=== PATIENT | female | born 1990 | race Caucasian/White ===

== ENCOUNTER → 2019-05-23 | Outpatient (CLI) | payer BC ==
[2019-05-23 15:42] LABS: BASOPHILS % (AUTO) 0 % (0-10); EOSINOPHILS % (AUTO) 0 % (0-10); HEMATOCRIT 33 % (35-52); LYMPHOCYTES % (AUTO) 13 % (12-44); MEAN CORPUSCULAR HEMOGLOBIN 31 PG (25-34); MEAN CORPUSCULAR HGB CONC 33 G/DL (32-36); MEAN CORPUSCULAR VOLUME 92 FL (80-99); MEAN PLATELET VOLUME 10.5 FL (7.4-10.4); MONOCYTES % (AUTO) 6 % (0-12); NEUTROPHILS % (AUTO) 81 % (42-75); PLATELET COUNT 218 10^3/uL (130-400); WHITE BLOOD COUNT 8.3 10^3/uL (4.3-11.0)
[2019-05-23 15:43] LABS: LYMPHOCYTES # (AUTO) 1.1 X 10^3 (1.0-4.0); MONOCYTES # (AUTO) 0.5 X 10^3 (0.0-1.0); NEUTROPHILS # (AUTO) 6.6 X 10^3 (1.8-7.8)
== END ==
LOC: LAB FS 13:37
PROVIDERS: ATTEND Family Medicine
DX: O99.280 Endocrine, nutritional and metabolic diseases complicating pregnancy, unspecified trimester (principal); E03.9 Hypothyroidism, unspecified
CPT/HCPCS: 36415; 82950; 84443; 85025; 86780

== ENCOUNTER → 2019-06-13 | Outpatient (CLI) | payer BC ==
[2019-06-13 17:43] LABS: BACTERIA,URINE TRACE /HPF; BILIRUBIN,URINE NEGATIVE (NEGATIVE); CLARITY,URINE CLEAR; COLOR,URINE YELLOW; GLUCOSE, URINE (UA) NEGATIVE (NEGATIVE); KETONES,URINE NEGATIVE (NEGATIVE); LEUKOCYTE ESTERASE ,URINE TRACE (NEGATIVE); NITRITE,URINE NEGATIVE (NEGATIVE); PH,URINE 6.5 (5-9); PROTEIN,URINE NEGATIVE (NEGATIVE); WBC,URINE 0-2 /HPF
== END ==
LOC: LAB FS 17:03
PROVIDERS: ATTEND Family Medicine
DX: R39.15 Urgency of urination (principal)
CPT/HCPCS: 81000

== ENCOUNTER → 2019-07-14 | Outpatient (CLI) | payer BC | LOC: LAB FS 09:59 | PROVIDERS: ATTEND Family Medicine | DX: E03.9 Hypothyroidism, unspecified (principal) | CPT/HCPCS: 36415; 84443 ==

== ENCOUNTER → 2019-07-18 | Outpatient (CLI) | payer BC ==
[~2019-07-18] MED LIST: DOCU-143 PO; IBUP-1780 PO; OXYC1TAB12 PO
== END ==
LOC: LAB FS 15:01
PROVIDERS: ATTEND Family Medicine
DX: Z34.00 Encounter for supervision of normal first pregnancy, unspecified trimester (principal)
CPT/HCPCS: 87081

== ENCOUNTER 2019-07-20 07:30 | Inpatient (IN) | payer BC ==
[2019-07-20] VITALS (21 sets, daily range): BP systolic 95–141; BP diastolic 59–93
[~2019-07-20] VITALS: Ht 160 cm; Wt 67.9 kg
--- NOTE | 2019-07-20 07:38 | NUR ---
ROXANNE RAYMOND presented to unit via w/c from ED, accompanied by ED staff and , with c/o SROM @ 8470 this a.m. Pt. gowned and to bed. Pt oriented to bed controls, call light, TV, heat, and A/C controls. breathing with ctx's.
--- NOTE | 2019-07-20 08:00 | NUR ---
Nitrazine positive. active leaking clear fluid noted from vaginal area. pt laying on side, rolling around in bed. breathing, moaning with ctx's. rates @ 8.5 on pain scale. SVE 5cm, 100%, tight bag of fluid noted. Addendum: 07/20/19 at 0951 by JACK DELUCA RN unable to determine presenting part r/t bag of fluid.
[2019-07-20] MEDS ORDERED: OXYTOCIN PRE-MIX DRIP 500 ML IV ONE (08:04)
[2019-07-20] MEDS ORDERED: LACTATED RINGERS 1,000 ML IV ONE ×3 (08:04→09:05)
[2019-07-20] MEDS ORDERED: D5 LR IV SOLUTION 1,000 ML IV ONE (08:04)
--- NOTE | 2019-07-20 08:04 | NUR ---
was called with admission c/o's, SVE and monitor tracing . admission orders received.
--- NOTE | 2019-07-20 08:19 | NUR ---
#20g IV to Lt. FA x1 attempt by this RN. admission labs collected from site prior to LR bolus infusing via IV pump.
[2019-07-20 08:29] LABS: BASOPHILS % (AUTO) 0 % (0-10); EOSINOPHILS % (AUTO) 0 % (0-10); HEMATOCRIT 37 % (35-52); HEMOGLOBIN 12.1 G/DL (11.5-16.0); LYMPHOCYTES # (AUTO) 1.3 X 10^3 (1.0-4.0); LYMPHOCYTES % (AUTO) 15 % (12-44); MEAN CORPUSCULAR HEMOGLOBIN 29 PG (25-34); MEAN CORPUSCULAR HGB CONC 33 G/DL (32-36); MEAN CORPUSCULAR VOLUME 88 FL (80-99); MEAN PLATELET VOLUME 10.7 FL (7.4-10.4); MONOCYTES # (AUTO) 0.6 X 10^3 (0.0-1.0); MONOCYTES % (AUTO) 8 % (0-12); NEUTROPHILS # (AUTO) 6.2 X 10^3 (1.8-7.8); NEUTROPHILS % (AUTO) 77 % (42-75); PLATELET COUNT 212 10^3/uL (130-400); WHITE BLOOD COUNT 8.2 10^3/uL (4.3-11.0)
--- NOTE | 2019-07-20 08:34 | NUR ---
anesthesia notified of pt's request for epidural placement.
[2019-07-20] MEDS ORDERED: fentaNYL 2 mcg/ml BUPIVA 0.125 100 ML ONE (08:36)
[2019-07-20] MEDS ORDERED: BUPIVACAINE 0.25% 30 ML (SENSORCAINE) VIAL ONE (08:37)
[2019-07-20] MEDS ORDERED: LIDOCAINE PF 2% 5 ML (XYLOCAINE) VIAL ONE (08:37)
--- OUTSIDE RECORDS SUMMARY | 2019-07-20 08:37 | XMS REPORT | Continuity of Care Document ---
Author Organization Unknown Address Unknown Phone Unavailable Allergies There is no data. Medications There is no data. Problems Date Dx Coded Attending Type Code Diagnosis Diagnosed By 05/25/2019 MAGUI AGARWAL MD, Ot E03 .9 HYPOTHYROIDISM, UNSPECIFIED 05/25/2019 MAGUI AGARWAL MD Ot O99.280 ENDO, NUTRITIONAL AND METAB DISEASES COM 06/13/2019 MAGUI AGARWAL MD, Ot E03 .9 HYPOTHYROIDISM, UNSPECIFIED 06/13/2019 MAGUI AGARWAL MD, Ot O99.280 ENDO, NUTRITIONAL AND METAB DISEASES COM 06/14/2019 MAGUI AGARWAL MD Ot R39.15 URGENCY OF URINATION 07/02/2019 MAGUI AGARWAL MD Ot R39.15 URGENCY OF URINATION 07/15/2019 MAGUI AGARWAL MD, Ot E03 .9 HYPOTHYROIDISM, UNSPECIFIED Procedures There is no data. Results Test Result Range TSH w/ FREE T4 - 11/04/18 09:25 TSH 1.81 mIU/L NRG T4, FREE 1.3 ng/dL 0.8-1.8 HCG, QUANTITATIVE - 11/04/18 09:25 HCG, TOTAL, QN <2 mIU/mL NRG GC/CHLAMYDIA (SWAB OR URINE)-RAPID - 12/25 00:00 CHLAMYDIA TRACHOMATIS RNA, TMA NOT DETECTED NOT DETECTED NEISSERIA GONORRHOEAE RNA, TMA NOT DETECTED NOT DETECTED COMMENT NRG SUREPATH PAP RFX HPV mRNA E6/E7 - 14:20 CLINICAL INFORMATION: NRG LMP: NRG PREV. PAP: NRG PREV. BX: NRG SOURCE: Cervix NRG STATEMENT OF ADEQUACY: NRG INTERPRETATION/RESULT: NRG DRY WALL PLASTERER: NRG COMMENT NRG HCG, QUANTITATIVE - 12/16/18 15:01 HCG, [place] [address]75 mIU/mL NRG TSH - 12/16/18 15:01 TSH 0.02 mIU/L NRG T4 FREE - 12/22/18 16:49 T4, FREE 1.6 ng/dL 0.8-1.8 T3 FREE - 12/22/18 16:49 T3, FREE 3.5 pg/mL 2.3-4.2 TSH - 03/30/19 11:15 TSH 8.49 mIU/L NRG Complete urinalysis with reflex to cultu re - 06/13/19 17:11 Urine color determination YELLOW NRG Urine clarity determination CLEAR NR G Urine pH measurement by test strip 6.5 5-9 Specific gravity of urine by test strip < 1.016-1.022 Urine protein assay by test strip, semi-quantitative NEGATIVE NEGATIVE Urine glucose detection by automated test strip NE GATIVE NEGATIVE Erythrocytes detection in urine sediment by light micr oscopy NEGATIVE NEGATIVE Urine ketones detection by automated test strip NE GATIVE NEGATIVE Urine nitrite detection by test strip NEGATIVE NEGATIVE Urine total bilirubin detection by test strip NEGA TIVE NEGATIVE Urine urobilinogen measurement by automated test strip (mass/volume) 0.2 mg/dL < = 1.0 Urine leukocyte esterase detection by dipstick TRA CE NEGATIVE Automated urine sediment erythrocyte cou nt by microscopy (number/high power field) NONE NRG Automated urine sediment leukocyte count by microscopy (number/high power field) [HPF] NRG Bacteria detection in urine sediment by light microsco py TRACE NRG Squamous epithelial cells detection in u rine sediment by light microscopy 2-5 NRG Crystals detection in urine sediment by light microsco py NONE NRG Casts detection in urine sediment by light microscopy NONE NRG Mucus detection in urine sediment by light microscopy NEGATIVE NRG Complete urinalysis with reflex to culture NO NRG Streptococcus agalactiae detection by or ganism specific culture - 07/18/19 00:00 Complete blood count (CBC) with automate d white blood cell (WBC) differential - 07/20/19 08:19 Blood leukocytes automated count (number/volume) 8.2 10*3/uL 4.3-11.0 Blood erythrocytes automated count (number/volume) 4.15 10*6/uL 4.35-5.85 Venous blood hemoglobin measurement (mass/volume) 12.1 g/dL 11.5-16.0 Blood hematocrit (volume fraction) 37 % 35-52 Automated erythrocyte mean corpuscular volume 88 [ foz_us] 80-99 Automated erythrocyte mean corpuscular h emoglobin (mass per erythrocyte) 29 pg 25-34 Automated erythrocyte mean corpuscular h emoglobin concentration measurement (mass/volume) 33 g/dL 32-36 Automated erythrocyte distribution width ratio 14. 0 % 10.0- 14.5 Automated blood platelet count (count/volume) 212 10*3/uL 130-400 Automated blood platelet mean volume measurement 10.7 [foz_us] 7.4-10.4 Automated blood neutrophils/100 leukocytes 77 % 42-75 Automated blood lymphocytes/100 leukocytes 15 % 12-44 Blood monocytes/100 leukocytes 8 % 0-12 Automated blood eosinophils/100 leukocytes 0 % 0-10 Automated blood basophils/100 leukocytes 0 % 0-10 Blood neutrophils automated count (number/volume) 6.2 10*3 1.8-7.8 Blood lymphocytes automated count (number/volume) 1.3 10*3 1.0-4.0 Blood monocytes automated count (number/volume) 0. 6 10*3 0.0-1.0 Automated eosinophil count 0.0 10*3/uL 0 .0-0.3 Automated blood basophil count (count/volume) 0.0 10*3/uL 0.0-0.1 Encounters ACCT No. Visit Date/Time Discharge Status Pt. Type Provider Facility Loc./Unit Complaint [id number] 03/30/2019 11:15:00 03/30/2019 23:59: 59 CLS Outpatient ADRIAN ADVIDA Pernell Escobar [facility] [place] [id number] 03/30/2019 11:15:00 Document Registration [id number] 12/22/2018 16:45:00 Document Registration [id number] 12/16/2018 15:00:00 Document Registration [id number] 12/16/2018 14:00:00 Document Registration [id number] 11/04/2018 09:00:00 Document Registration [id number] 07/14/2019 09:59:00 23:59:59 CLS Outpatient MAGUI AGARWAL MD [facility] HYPOTHYROIDISM [id number] 06/13/2019 17:03:00 23:59:59 CLS Outpatient MAGUI AGARWAL MD [facility] URINARY URGENCY [id number] 05/23/2019 13:37:00 020 23:59:59 CLS Outpatient STEFANO MALONE, MAGUI Hernandez [facility] SUPERVISION OF MANUEL ANDERSON [id number] 07/20/2019 08:32:00 Document Registration [id number] 07/18/2019 15:01:[address] Outpatient STEFANO MALONE, MAGUI Hernandez [facility]
[2019-07-20] MEDS ORDERED: fentaNYL INJECTION 100 MCG/2 ML AMP ONE ×2 (08:38→09:58)
--- NOTE | 2019-07-20 08:45 | NUR ---
KENNETH Arellano here for epidural placement. Procedure explained, consent reviewed and signed by anesthesia. Questions answered to patient's satisfaction. Time out taken to verify correct patient/procedure. Patient up to side of bed, assisted into sitting position. Betadine prep done x3 and sterile drape applied. Local done, see anesthesia record. Test dose given, see anesthesia record for drug and dosage. Epidural catheter secured in place. Epidural placement complete. Assisted back into bed, monitors adjusted. Epidural dosed, see anesthesia record. Epidural of Sufenta/Bupvicaine @12cc/hr stated per pump. Patient tolerated procedure well.
[2019-07-20] MEDS ORDERED: ONDANSETRON 4 MG/2 ML (SDV) Z0FRAN IV PRN (09:15)
[2019-07-20] MEDS ORDERED: NALOXONE 0.4 MG/ML 1 ML (NARCAN) VIAL IV PRN (09:15)
[2019-07-20] MEDS ORDERED: EPIDURAL (fentaNYL 2 MCG/ML BUPIVA 0.125%)100 ML BAG EPI PRN (09:15)
[2019-07-20] MEDS: D5 LR IV SOLUTION 1,000 ML IV SCH ×2 (09:20→18:32)
[2019-07-20] MEDS ORDERED: TERBUTALINE INJ 1 MG/ML (BRETHINE) AMP ONE (09:45)
[2019-07-20] MEDS ORDERED: METOCLOPRAMIDE INJ 10 MG/2 ML (REGLAN) ONE (09:46)
[2019-07-20] MEDS ORDERED: CITRIC ACID/SOB CIT (BICITRA) 30 ML UDC ONE (09:46)
[2019-07-20] MEDS ORDERED: FAMOTIDINE 20MG/2ML IV (PEPCID) ONE (09:47)
[2019-07-20] MEDS ORDERED: LACTATED RINGERS 1,000 ML IV PRN (09:55)
[2019-07-20] MEDS ORDERED: OXYTOCIN PRE-MIX DRIP 1,000 ML IV ONE (09:58)
[2019-07-20] MEDS ORDERED: ceFAZolin 2 GM IV Premixed 50 ML ONE (09:58)
[2019-07-20] MEDS ORDERED: metroNIDAZOLE 500MG/100ML IVPB 100 ML ONE (09:58)
[2019-07-20] MEDS ORDERED: METOCLOPRAMIDE INJ 10 MG/2 ML (REGLAN) IV ONE (10:00)
[2019-07-20] MEDS ORDERED: FAMOTIDINE 20MG/2ML IV (PEPCID) IV ONE (10:00)
[2019-07-20] MEDS ORDERED: CITRIC ACID/SOB CIT (BICITRA) 30 ML UDC PO ONE (10:00)
[2019-07-20] MEDS ORDERED: BUPIVACAINE 0.5% 30 ML (SENSORCAINE) VIAL ONE (10:29)
--- NOTE | 2019-07-20 10:44 | NUR ---
Pt brought to PACU on bed via Dr Guillermo. Dr Agosto gave this nurse report on pt. See PACU intervention. This nurse assisted Dr Guillermo with Tap block from 1050 to 1100.
[2019-07-20] MEDS ORDERED: D5 LR IV SOLUTION 1,000 ML IV SCH (11:04)
[2019-07-20] MEDS ORDERED: DOCU-143 PO (11:07)
[2019-07-20] MEDS ORDERED: OXYC1TAB12 PO (11:07)
[2019-07-20] MEDS ORDERED: IBUP-1780 PO (11:07)
--- NOTE | 2019-07-20 11:08 | Discharge Inst-Surgical ---
Discharge Inst-Surgical Depart Medication/Instructions New, Converted or Re-Newed RX: RX on Chart Consults/Follow Up Patient Instructions: as directed Orders & Referrals Follow Up Appt: RTC 1 week for incision check with Dr. Isaac Call to make follow up appt. for patient in [address] Powell. Wound Care: Remove mona, apply benzoin and steri strips. Activity Per routine post instructions. Please call in RX to patient pharmacy. Diet as tolerated Patient may shower or tub bathe as desired. Continue home meds Activity Activity as Tolerated: No Diet Discharge Diet: No Restrictions BERNARDA ISAAC MD July 20, 2019 11:08
[2019-07-20] MEDS: OXYTOCIN PRE-MIX DRIP 500 ML IV SCH ×2 (11:10→15:30)
[2019-07-20] MEDS ORDERED: ONDANSETRON 4 MG/2 ML (SDV) Z0FRAN IVP PRN (11:15)
[2019-07-20] MEDS ORDERED: TETANUS,DIPTH,PERTUSS P/F (BOOSTRIX) 0.5 ML VIAL IM ONE (11:15)
[2019-07-20] MEDS ORDERED: MEASLES,MUMPS,RUBELLA 1 EA INJ SC ONE (11:15)
[2019-07-20] MEDS: KETOROLAC 30 MG/ML VIAL IVP SCH ×3 (12:35→23:53)
--- NOTE | 2019-07-20 13:30 | NUR ---
report given to David Stephen RN
--- NOTE | 2019-07-20 13:55 | NUR ---
underwear on. Pt assisted to wheelchair and to nsy to see infant. s.o. present.
[2019-07-20] MEDS: CATHETER FLUSH 10 ML SYR IV SCH ×2 (14:27→22:58)
--- NOTE | 2019-07-20 15:05 | NUR ---
fresh ice water and food tray to [facility] for pt.
[2019-07-20] MEDS: oxyCODONE/APAP 10/325MG (PERCOCET 10) TABLET PO PRN ×3 (15:14→23:53)
--- NOTE | 2019-07-20 15:30 | OPERATIVE REPORT ---
DATE OF SERVICE: 07/20/2019 PREOPERATIVE DIAGNOSES: A 36 and 2/7 weeks' gestation in advanced labor with premature rupture of membranes and breech presentation. POSTOPERATIVE DIAGNOSES: A 36 and 2/7 weeks' gestation in advanced labor with premature rupture of membranes and breech presentation. OPERATIVE PROCEDURE: Primary low transverse delivery of a viable female with Apgars of 8 and 8 at 1 and 5 minutes respectively, weight of 5 pounds 7 ounces. time of 10:21 and a cord blood pH of 7.21. AUTO TECHNICIAN MECHANIC FOR DELIVERY: Dr. Rust. OPERATIVE DESCRIPTION: With the patient in the supine position under satisfactory spinal analgesia, the patient was prepped and draped in the usual fashion for abdominal surgery. Urrutia catheter was placed in the urinary bladder, left to dependent drainage. A Pfannenstiel incision was made through the skin with scalpel, the patient's abdomen entered in the usual manner. Bladder retractor placed in position, clean scalpel used to make a 4 cm hysterotomy incision transversely across the lower uterine segment that was extended by blunt dissection as well. A vigorous viable female infant was delivered via the uterine incision. had Apgars and stats as noted above. The infant was bulb suctioned on delivery. The umbilical cord was doubly clamped and cut and the passed to the pilot captain in attendance for delivery. Cord bloods were obtained. The placenta delivered spontaneously [place]. It was normal with a 3-vessel cord. The uterus was exteriorized, the interior wiped clean with a wet laparotomy sponge. Uterine incision then closed with running locked suture of 2-0 Vicryl. Hemostasis was complete. The uterus was returned to abdominal cavity. All blood clot and debris was removed from the abdominal cavity. With sponge, needle counts correct and hemostasis assured, the anterior parietal peritoneum was closed with running suture of 2-0 Vicryl. Rectus muscles were closed with that suture as well. The rectus fascia was closed with 2-0 Vicryl, subcutaneous tissue was closed with 2-0 Vicryl and the skin was stapled. Sponge and needle counts were correct on completion of the procedure. Estimated blood loss was around 400 mL. The patient tolerated the procedure well and was transferred to the recovery room in stable condition. The infant was taken stable to the full term nursery under the care of the pilot captain. Job ID: [id number] DocumentID: [id number] Dictated Date: 07/20/2019 13:03:11 Compliance Clerk Date: 07/20/2019 15:28:35 Dictated By: BERNARDA QUIÑONEZ MD
--- NOTE | 2019-07-20 15:45 | NUR ---
Pt back to room 313. To bathroom. ambulates well. void, pericare, pad changed, gown changed. Ambulates back to wheelchair and to nsy at warmer side to be with .
[2019-07-20] MEDS: DOCUSATE SODIUM 100 MG (COLACE) CAP PO SCH (19:51)
[2019-07-20] MEDS ORDERED: DOCUSATE SODIUM 100 MG (COLACE) CAP PO SCH (21:00)
[2019-07-21 04:35] VITALS: BP 129/85
[2019-07-21] MEDS: CATHETER FLUSH 10 ML SYR IV SCH ×2 (05:28→14:09)
[2019-07-21] MEDS: KETOROLAC 30 MG/ML VIAL IVP SCH ×3 (05:28→19:43)
--- NOTE | 2019-07-21 07:52 | Progress Note ---
Standard Progress Note Progress Notes/Assess & Plan Date Seen by a Provider: July 21, 2019 Time Seen by a Provider: 07:50 Progress/Assessment & Plan This patient is without complaint. She is ambulating, voiding, tolerating oral intake well has good pain control. Vital Signs Date Time Temp Pulse Resp B/P (MAP) Pulse Ox O2 Delivery O2 Flow Rate FiO2 07/21/19 04:35 37.2 91 18 129/85 (100) 99 Room Air 07/20/19 23:53 37.5 79 18 132/89 (103) 100 Room Air 07/20/19 21:50 36.8 79 18 119/78 (92) 97 Room Air 07/20/19 17:30 37.3 88 18 115/83 (94) 98 Room Air 07/20/19 13:00 37.2 86 18 120/71 (87) 100 Room Air 07/20/19 12:37 37.2 86 16 112/67 (82) 100 Room Air 07/20/19 11:44 Room Air 07/20/19 11:44 36.8 16 101/59 (73) 100 Room Air 07/20/19 11:30 Room Air 07/20/19 11:30 36.4 16 105/70 (82) 100 Room Air 07/20/19 11:15 36.4 16 99/62 (74) 100 Room Air 07/20/19 11:15 Room Air 07/20/19 11:00 Room Air 07/20/19 11:00 36.8 16 95/60 (72) 99 Room Air 07/20/19 10:44 Room Air 07/20/19 10:44 36.8 16 101/59 (73) 100 Room Air 07/20/19 10:05 86 18 100 Room Air 07/20/19 10:00 73 18 134/85 (101) 100 Room Air 07/20/19 09:45 70 18 137/93 (108) 100 Room Air 07/20/19 09:35 37.0 69 18 100 Room Air 07/20/19 09:30 68 100 Room Air 07/20/19 09:20 76 18 126/75 (92) 100 Room Air 07/20/19 09:15 71 18 115/73 (87) 100 Room Air 07/20/19 09:10 69 18 116/74 (88) 98 Room Air 07/20/19 09:05 69 18 124/82 (96) 100 Room Air 07/20/19 09:00 77 18 129/78 (95) 100 Room Air 07/20/19 08:55 77 18 128/85 (99) 99 Room Air 07/20/19 08:50 85 18 141/75 (97) Room Air 07/20/19 08:00 36.6 81 18 119/84 (96) Room Air I & O 07/21/19 07:00 Intake Total 4700 ml Output Total 5650 ml Balance -950 ml Vital signs are stable. Patient is afebrile. Fundus is firm below the umbilicus and nontender. Surgical incision is clean dry and intact. Extremities show no clubbing cyanosis. There is no Homans sign. Assessment and plan postoperative day number 1 status post primary delivery at 36 weeks gestation due to breech presentation. Patient is doing w ell and will have routine convalescence care BERNARDA QUIÑONEZ MD July 21, 2019 07:51
[2019-07-21 10:57] VITALS: BP 111/80
[2019-07-21] MEDS: DOCUSATE SODIUM 100 MG (COLACE) CAP PO SCH (10:59)
[2019-07-21] MEDS: IBUPROFEN 800 MG (MOTRIN) TAB PO SCH ×2 (12:29→18:19)
[2019-07-21] MEDS: D5 LR IV SOLUTION 1,000 ML IV SCH (14:09)
--- NOTE | 2019-07-21 14:12 | Anesthesia-General Post-Op ---
General Patient Condition Mental Status/LOC: Same as Preop Cardiovascular: Satisfactory Nausea/Vomiting: Absent Respiratory: Satisfactory Pain: Controlled Complications: Absent Post Op Complications Complications None Follow Up Care/Instructions Patient Instructions None needed. Anesthesia/Patient Condition Patient Condition Patient is doing well, no complaints, stable vital signs, no apparent adverse anesthesia problems. No complications reported per nursing. ROWDY SAVAGE CRNA July 21, 2019 14:12
--- NOTE | 2019-07-21 15:31 | NUR ---
CM/SS: Received a notification that pt was unable to afford to purchase diabetic supplies. Summary: Follow up with JOSE CRUZ Lomas on floor. She indicates that they have not been monitoring pt's blood sugars and that pt is not diabetic. She is shown the notification. The notification would of been printed in error. No identified need for assistance with diabetic supplies.
--- NOTE | 2019-07-21 15:40 | NUR ---
Report from Sofia Tyson RN. 1625 Pt in nursery at baby's bedside - feels heart racing and skipping beats. Generally does not feel well. LCTA, heart rate regular. Bowel sounds active but no flatus passed or had BM. 1+ edema of feet and lower extremities. Pt admits to not eating or sleeping. Has been in nursery for several hours. 1700 Pt ambulated to room. 1830 Awakened pt for Motrin. States she feels much better with a little nap.
[2019-07-21 16:19] VITALS: BP 113/78
[2019-07-21] MEDS: oxyCODONE/APAP 10/325MG (PERCOCET 10) TABLET PO PRN (16:22)
[2019-07-22 00:01] VITALS: BP 112/77
[2019-07-22] MEDS: oxyCODONE/APAP 10/325MG (PERCOCET 10) TABLET PO PRN ×2 (00:01→18:30)
[2019-07-22] MEDS: DOCUSATE SODIUM 100 MG (COLACE) CAP PO SCH ×3 (00:01→20:07)
[2019-07-22] MEDS: IBUPROFEN 800 MG (MOTRIN) TAB PO SCH ×3 (00:01→18:30)
[2019-07-22 06:15] VITALS: BP 119/90
--- NOTE | 2019-07-22 08:00 | NUR ---
here to see pt.
--- NOTE | 2019-07-22 08:00 | Progress Note ---
Standard Progress Note Progress Notes/Assess & Plan Date Seen by a Provider: July 22, 2019 Time Seen by a Provider: 07:58 Progress/Assessment & Plan This patient is without complaint. She is ambulating, voiding, tolerating oral intake well has good pain control. Vital Signs Date Time Temp Pulse Resp B/P (MAP) Pulse Ox O2 Delivery O2 Flow Rate FiO2 07/21/19 04:35 37.2 91 18 129/85 (100) 99 Room Air 07/20/19 23:53 37.5 79 18 132/89 (103) 100 Room Air 07/20/19 21:50 36.8 79 18 119/78 (92) 97 Room Air 07/20/19 17:30 37.3 88 18 115/83 (94) 98 Room Air 07/20/19 13:00 37.2 86 18 120/71 (87) 100 Room Air 07/20/19 12:37 37.2 86 16 112/67 (82) 100 Room Air 07/20/19 11:44 Room Air 07/20/19 11:44 36.8 16 101/59 (73) 100 Room Air 07/20/19 11:30 Room Air 07/20/19 11:30 36.4 16 105/70 (82) 100 Room Air 07/20/19 11:15 36.4 16 99/62 (74) 100 Room Air 07/20/19 11:15 Room Air 07/20/19 11:00 Room Air 07/20/19 11:00 36.8 16 95/60 (72) 99 Room Air 07/20/19 10:44 Room Air 07/20/19 10:44 36.8 16 101/59 (73) 100 Room Air 07/20/19 10:05 86 18 100 Room Air 07/20/19 10:00 73 18 134/85 (101) 100 Room Air 07/20/19 09:45 70 18 137/93 (108) 100 Room Air 07/20/19 09:35 37.0 69 18 100 Room Air 07/20/19 09:30 68 100 Room Air 07/20/19 09:20 76 18 126/75 (92) 100 Room Air 07/20/19 09:15 71 18 115/73 (87) 100 Room Air 07/20/19 09:10 69 18 116/74 (88) 98 Room Air 07/20/19 09:05 69 18 124/82 (96) 100 Room Air 07/20/19 09:00 77 18 129/78 (95) 100 Room Air 07/20/19 08:55 77 18 128/85 (99) 99 Room Air 07/20/19 08:50 85 18 141/75 (97) Room Air 07/20/19 08:00 36.6 81 18 119/84 (96) Room Air I & O 07/21/19 07:00 Intake Total 4700 ml Output Total 5650 ml Balance -950 ml Vital signs are stable. Patient is afebrile. Fundus is firm below the umbilicus and nontender. Surgical incision is clean dry and intact. Extremities show no clubbing cyanosis. There is no Homans sign. Assessment and plan postoperative day number 1 status post primary delivery at 36 weeks gestation due to breech presentation. Patient is doing w ell and will have routine convalescence care July 22, 2019 Patient is without complaint. She is ambulating, voiding, tolerating oral intake well has good pain control. Vital Signs Date Time Temp Pulse Resp B/P (MAP) Pulse Ox O2 Delivery O2 Flow Rate FiO2 07/22/19 06:15 36.0 94 18 119/90 (100) 98 Room Air 07/22/19 00:01 36.7 98 18 112/77 (89) 99 Room Air 07/21/19 16:19 36.9 98 16 113/78 (90) 97 Room Air 07/21/19 10:57 36.9 97 16 111/80 (90) 96 Room Air I & O 07/22/19 07:00 Intake Total 1000 ml Balance 1000 ml Vital signs are stable. Patient is afebrile. The abdomen is benign. Extremities show no clubbing or cyanosis. There is no Homans sign. Assessment and plan postoperative day number 2 status post primary delivery at 36 weeks gestation. Plan is for routine convalescence care with discharge home pending Final Diagnosis 36 week primary delivery BERNARDA QUIÑONEZ MD July 22, 2019 07:59
--- NOTE | 2019-07-22 10:00 | NUR ---
initial assessment completed, see interventions for further. remain in nursery for bonding with .
[2019-07-22 13:13] VITALS: BP 126/90
--- NOTE | 2019-07-22 15:45 | History & Physical-OB ---
OB - Chief Complaint & HPI Date/Time Date of Admission: Date of Admission: July 20, 2019 at 08:06 Date seen by a Provider: July 20, 2019 Time Seen by a Provider: 11:00 Chief Complaint/History OB-Reason for Admission/Chief: Labor Hx : 1 Hx Para: 1 Expected Date of Delivery: Aug 15, 2019 Gestational Age in Weeks: 36 Gestational Age in Days: 2 Indication for : malpresentation Admission Nurse Assessment Rev: Yes Allergies and Home Medications Allergies Coded Allergies: amoxicillin (Verified Allergy, Unknown, 07/20/19) Home Medications Docusate Sodium 100 Mg Capsule, 100 MG PO BID Prescribed by: BERNARDA DODD on 07/20/19 110 Ibuprofen 800 Mg Tablet, 800 MG PO Q6H PRN for PAIN Prescribed by: BERNARDA DODD on 07/20/19 1107 Oxycodone HCl/Acetaminophen 1 Each Tablet, 1 TAB PO Q4H PRN for PAIN-MODERATE Prescribed by: BERNARDA DODD on 07/20/19 1107 Patient Home Medication List Home Medication List Reviewed: Yes OB - History Hx of Present Care: Yes Ultrasounds: Normal mid trimester US Obstetrical Complications: None Medical Complications: Other (acquired hypothyroidism) Delivery History Adverse Rxn to Tranfusion: No Patient Past Medical History hypothyroidism Social History/Family History HIV/AIDS: No Recent Infectious Disease Expo: No Sexually Transmitted Disease: No Alcohol Use: Denies Use Recreational Drug Use: No Immunizations Hepatitis A: No Hepatitis B: No OB - Admission Exam Physical Exam Vitals: Vital Signs 07/22/19 13:13 Temp 37.1 Pulse 92 Resp 18 B/P (MAP) 126/90 (102) Pulse Ox 100 O2 Delivery Room Air HEENT: NCAT Abdomen: Gravid Extremities: Normal Reflexes: Normal OB - Assessment/Plan/Diagnosis Assessment Assessment: labor Admission Dx labor at 36 2/7 wga, breech presentation Admission Status: Inpatient Order (span 2 midnights) Reason for Inpatient Admission: labor at 36 2/7 wga, breech presentation. Plan Other Plan Breech presentation. Consulted Dr. Isaac for . In process by the time of my arrival. MAGUI AGARWAL MD July 22, 2019 15:44
[2019-07-22 18:34] VITALS: BP 131/93
--- NOTE | 2019-07-22 19:25 | NUR ---
report given to next shift.
[2019-07-22 20:05] VITALS: BP 120/74
[2019-07-23 00:20] VITALS: BP 117/80
[2019-07-23] MEDS: oxyCODONE/APAP 10/325MG (PERCOCET 10) TABLET PO PRN ×2 (00:23→12:45)
[2019-07-23] MEDS: IBUPROFEN 800 MG (MOTRIN) TAB PO SCH ×3 (00:23→12:26)
[2019-07-23 06:45] VITALS: BP 128/87
[2019-07-23 07:20] VITALS: BP 120/80
[2019-07-23] MEDS: DOCUSATE SODIUM 100 MG (COLACE) CAP PO SCH (07:39)
--- NOTE | 2019-07-23 08:21 | Progress Note ---
Standard Progress Note Progress Notes/Assess & Plan Date Seen by a Provider: July 23, 2019 Time Seen by a Provider: 08:19 Progress/Assessment & Plan This patient is without complaint. She is ambulating, voiding, tolerating oral intake well has good pain control. Vital Signs Date Time Temp Pulse Resp B/P (MAP) Pulse Ox O2 Delivery O2 Flow Rate FiO2 07/21/19 04:35 37.2 91 18 129/85 (100) 99 Room Air 07/20/19 23:53 37.5 79 18 132/89 (103) 100 Room Air 07/20/19 21:50 36.8 79 18 119/78 (92) 97 Room Air 07/20/19 17:30 37.3 88 18 115/83 (94) 98 Room Air 07/20/19 13:00 37.2 86 18 120/71 (87) 100 Room Air 07/20/19 12:37 37.2 86 16 112/67 (82) 100 Room Air 07/20/19 11:44 Room Air 07/20/19 11:44 36.8 16 101/59 (73) 100 Room Air 07/20/19 11:30 Room Air 07/20/19 11:30 36.4 16 105/70 (82) 100 Room Air 07/20/19 11:15 36.4 16 99/62 (74) 100 Room Air 07/20/19 11:15 Room Air 07/20/19 11:00 Room Air 07/20/19 11:00 36.8 16 95/60 (72) 99 Room Air 07/20/19 10:44 Room Air 07/20/19 10:44 36.8 16 101/59 (73) 100 Room Air 07/20/19 10:05 86 18 100 Room Air 07/20/19 10:00 73 18 134/85 (101) 100 Room Air 07/20/19 09:45 70 18 137/93 (108) 100 Room Air 07/20/19 09:35 37.0 69 18 100 Room Air 07/20/19 09:30 68 100 Room Air 07/20/19 09:20 76 18 126/75 (92) 100 Room Air 07/20/19 09:15 71 18 115/73 (87) 100 Room Air 07/20/19 09:10 69 18 116/74 (88) 98 Room Air 07/20/19 09:05 69 18 124/82 (96) 100 Room Air 07/20/19 09:00 77 18 129/78 (95) 100 Room Air 07/20/19 08:55 77 18 128/85 (99) 99 Room Air 07/20/19 08:50 85 18 141/75 (97) Room Air 07/20/19 08:00 36.6 81 18 119/84 (96) Room Air I & O 07/21/19 07:00 Intake Total 4700 ml Output Total 5650 ml Balance -950 ml Vital signs are stable. Patient is afebrile. Fundus is firm below the umbilicus and nontender. Surgical incision is clean dry and intact. Extremities show no clubbing cyanosis. There is no Homans sign. Assessment and plan postoperative day number 1 status post primary delivery at 36 weeks gestation due to breech presentation. Patient is doing w ell and will have routine convalescence care July 22, 2019 Patient is without complaint. She is ambulating, voiding, tolerating oral intake well has good pain control. Vital Signs Date Time Temp Pulse Resp B/P (MAP) Pulse Ox O2 Delivery O2 Flow Rate FiO2 07/22/19 06:15 36.0 94 18 119/90 (100) 98 Room Air 07/22/19 00:01 36.7 98 18 112/77 (89) 99 Room Air 07/21/19 16:19 36.9 98 16 113/78 (90) 97 Room Air 07/21/19 10:57 36.9 97 16 111/80 (90) 96 Room Air I & O 07/22/19 07:00 Intake Total 1000 ml Balance 1000 ml Vital signs are stable. Patient is afebrile. The abdomen is benign. Extremities show no clubbing or cyanosis. There is no Homans sign. Assessment and plan postoperative day number 2 status post primary delivery at 36 weeks gestation. Plan is for routine convalescence care with discharge home pending July 23, 2019 This patient is without complaint. She is ambulating, voiding, tolerating oral intake well has good pain control. Vital Signs Date Time Temp Pulse Resp B/P (MAP) Pulse Ox O2 Delivery O2 Flow Rate FiO2 07/23/19 06:45 36.2 78 16 128/87 (101) 98 Room Air 07/23/19 00:20 36.4 82 16 117/80 (92) 98 Room Air 07/22/19 20:05 36.2 83 18 120/74 (89) 97 Room Air 07/22/19 18:34 36.2 85 18 131/93 (106) 99 Room Air 07/22/19 13:13 37.1 92 18 126/90 (102) 100 Room Air Vital signs are stable. Patient is afebrile. The abdomen is benign. The surgical incision is clean dry and intact. Extremities show no clubbing cyanosis. There is no Homans sign. Assessment and plan postoperative day number 3 status post primary delivery doing well. Plan is for routine convalescence care Final Diagnosis 36 week primary delivery BERNARDA QUIÑONEZ MD July 23, 2019 08:21
--- NOTE | 2019-07-23 11:23 | NUR ---
[place] removed, benzoin and steri strips applied. Edges of incision approximated.
--- NOTE | 2019-07-23 12:39 | NUR ---
Home instructions given with pt verbalizing understanding. 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 Explained parents would get meals free but would not longer receive pain medications or nursing care for mom.
== END 2019-07-23 13:10 | disposition home or self-care (01) | DRG 786 ==
LOC: LDRP 07:30 → WSo 07:30 → LDRP 08:06
PROVIDERS: ADMIT Family Medicine; ATTEND Family Medicine
PROC: 10D00Z1 Extraction of Products of Conception, Low, Open Approach (ICD-10-PCS; principal; 2019-07-20 10:05)
DX: O64.1XX0 Obstructed labor due to breech presentation, not applicable or unspecified (principal); O60.14X0 Preterm labor third trimester with preterm delivery third trimester, not applicable or unspecified; O42.013 Preterm premature rupture of membranes, onset of labor within 24 hours of rupture, third trimester; O99.284 Endocrine, nutritional and metabolic diseases complicating childbirth; E03.9 Hypothyroidism, unspecified; Z3A.36 36 weeks gestation of pregnancy; Z37.0 Single live birth
CPT/HCPCS: 36415; 85025; 86850; 86900; 86901; 88307; 99212

== ENCOUNTER 2019-07-31 18:19 | Emergency (ER) | payer BC ==
[~2019-07-31] VITALS: Ht 160 cm; Wt 63.6 kg
--- OUTSIDE RECORDS SUMMARY | 2019-07-31 18:24 | XMS REPORT | Continuity of Care Document ---
Author Organization Unknown Address Unknown Phone Unavailable Allergies Active Description Code Type Severity Reaction Onset Reported/Identified Relationship to Patient Clinical Status Yes amoxicillin [id number] Drug Aller gy Unknown N/A 07/20/2019 Medications There is no data. Problems Date [...] AGARWAL MD, Ot E03 .9 HYPOTHYROIDISM, UNSPECIFIED 07/20/2019 MAGUI AGARWAL MD Ot Z34.00 ENCNTR FOR SUPRVSN OF NORMAL FIRST PREGN 07/23/2019 MAGUI AGARWAL MD, Ot E03 .9 HYPOTHYROIDISM, UNSPECIFIED 07/23/2019 MAGUI AGARWAL MD Ot O42.013 PRETRM OTIS ROM, ONSET LABOR W/N 24 HOUR 07/23/2019 MAGUI AGARWAL MD, Ot O60.14X0 LABOR THIRD TRI W DELIVE 07/23/2019 MAGUI AGARWAL MD, Ot O64.1XX0 OBSTRUCTED LABOR DUE TO BREECH PRESENTAT 07/23/2019 MAGUI AGARWAL MD Ot O99.284 ENDOCRINE, NUTRITIONAL AND METABOLIC DIS 07/23/2019 MAGUI AGARWAL MD, Ot Z37 .0 SINGLE LIVE 07/23/2019 MAGUI AGARWAL MD, Ot Z3A.36 36 WEEKS GESTATION OF Procedures Code Description Performed By Per formed On [id number] EX TRACTION OF PRODUCTS OF CONCEPTION, 07/20/2019 Results Test Result Range TSH w/ FREE [...] NRG STATEMENT OF ADEQUACY: NRG INTERPRETATION/RESULT: NRG SPORTS MARKETER: NRG COMMENT NRG HCG, QUANTITATIVE - 12/16/18 15:01 [place], [place] [address] mIU/mL NRG TSH - 12/16/18 15:01 TSH [...] blood basophil count (count/volume) 0.0 10*3/uL 0.0-0.1 Blood type T Indirect antibody screen pa tamera - 07/20/19 08:19 WRISTBAND NUMBER [id number] NRG ABO+Rh group AP NRG Blood group antibody screen NEGATIVE NR G Encounters ACCT No. Visit Date/Time Discharge Status Pt. Type Provider Facility Loc./Unit Complaint [id number] 03/30/2019 11:15:00 03/30/2019 23:59: 59 CLS Outpatient DAVIDA [facility]AMPBELL [facility] [id number] 03/30/2019 11:15:00 Document Registration [id number] 12/22/2018 16:45:00 Document Registration [id number] 12/16/2018 15:00:00 Document Registration [id number] 12/16/2018 14:00:00 Document Registration [id number] 11/04/2018 09:00:00 Document Registration [id number] 07/20/2019 08:06:00 13:10:00 DIS Inpatient MAGUI AGARWAL MD [facility] LABOR [id number] 07/18/2019 15:01:00 23:59:59 CLS Outpatient MAGUI AGARWAL MD [facility] LAB FS [id number] 07/14/2019 09:59:00 23:59:59 CLS Outpatient MAGUI AGARWAL MD [facility] LAB FS HYPOTHYROIDISM [id number] 06/13/2019 17:03:00 23:59:59 CLS Outpatient MAGUI AGARWAL MD [facility] LAB FS URINARY URGENCY [id number] 05/23/2019 13:37:00 23:59:59 CLS Outpatient MAGUI AGARWAL MD [facility] LAB FS SUPERVISION OF NORMAL P REGNANCY
--- NOTE | 2019-07-31 18:33 | ED GU-Female ---
General Stated Complaint: C SECTION INCISION INFECTED Source: patient Exam Limitations: no limitations History of Present Illness Date Seen by Provider: July 31, 2019 Time Seen by Provider: 18:17 Initial Comments Patient presents ER by private conveyance from home with chief complaint that she has some swelling tenderness and erythema associated with her incision from on the , 12 days ago. She went and saw Dr. Agarwal on Thursday and they examined and did not do anything different. She went back and saw her Thursday and was put on Keflex. She feels like today the swelling started more on the right side incision and has moved over to the left side. She has no opening of the wound or drainage. No nausea sweats or diarrhea. She claims to have measured a 100.8 fever earlier today after taking some ibuprofen. Nursing reports no fever at present. She has modest amount tenderness to touch. She is breast-feeding. Normal show, denies dysuria, dyspareunia, discharge or difficulty breast-feeding. Allergies and Home Medications Allergies Coded Allergies: amoxicillin (Verified Allergy, Unknown, 07/20/19) Home Medications Docusate Sodium 100 Mg Capsule, 100 MG PO BID Prescribed by: BERNARDA DODD on 07/20/19 1107 Ibuprofen 800 Mg Tablet, 800 MG PO Q6H PRN for PAIN Prescribed by: BERNARDA DODD on 07/20/19 1107 Oxycodone HCl/Acetaminophen 1 Each Tablet, 1 TAB PO Q4H PRN for PAIN-MODERATE Prescribed by: BERNARDA DODD on 07/20/19 1107 Patient Home Medication List Home Medication List Reviewed: Yes Review of Systems Review of Systems Constitutional: No chills, No diaphoresis EENTM: No ear discharge, No ear pain Respiratory: No cough, No short of breath Cardiovascular: No chest pain, No edema Gastrointestinal: No abdominal pain, No constipation, No diarrhea, No nausea, No vomiting Genitourinary: denies burning, denies discharge Musculoskeletal: No back pain, No joint pain Skin: see HPI All Other Systemes Reviewed Negative Unless Noted: Yes Past Cacfpxd-Ssiegl-Hleudw Hx Patient Social History Alcohol Use: Denies Use Recreational Drug Use: No Smoking Status: Never a Smoker Recent Foreign Travel: No Contact w/Someone Who Travel: No Recent Hopitalizations: No Immunizations Up To Date PED Vaccines UTD: Yes Seasonal Allergies Seasonal Allergies: No Past Medical History Respiratory: No Currently Using CPAP: No Currently Using BIPAP: No Neurological: No Female Reproductive Disorders: Denies Sexually Transmitted Disease: No HIV/AIDS: No Genitourinary: No Gastrointestinal: No Musculoskeletal: No Endocrine: Yes HEENT: No Cancer: Yes (Thyroid cancer) Thyroid What Type of Treatment Did You: Radiation, Surgical Intervention Psychosocial: No Integumentary: No Blood Disorders: No Adverse Reaction/Blood Tranf: No Family Medical History Asthma G8 BROTHER (3y/o) Physical Exam Vital Signs Vital Signs - First Documented 07/31/19 18:21 Temp 37.0 Pulse 76 Resp 18 B/P (MAP) 105/87 (93) Pulse Ox 98 O2 Delivery Room Air Capillary Refill : Height, Weight, BMI Height: '" Weight: lbs. oz. kg; 26.52 BMI Method: General Appearance: WD/WN, no apparent distress HEENT: PERRL/EOMI, pharynx normal Cardiovascular: normal peripheral pulses, regular rate, rhythm Respiratory: no respiratory distress, no accessory muscle use Gastrointestinal: normal bowel sounds, soft, no organomegaly, tenderness (suprapubic and right lower quadrant around the well-healing scar are mildly tender to palpation) Extremities: normal range of motion, normal capillary refill Neurologic/Psychiatric: alert, oriented x 3 Skin: normal color, warm/dry, other (healing, closed, clean, dry pfannenstiel scar with mild tenderness to palpation, scant erythema and no induration. There is a fluctuant palpable fluid collection just under the scar without discharge.) Progress/Results/Core Measures Suspected Sepsis SIRS Temperature: Pulse: Respiratory Rate: Laboratory Tests 07/31/19 18:30: White Blood Count 10.4 Blood Pressure / Mean: Laboratory Tests 07/31/19 18:30: Platelet Count 519H Results/Orders Lab Results Laboratory Tests Test 07/31/19 18:30 07/31/19 18:40 Range/Units White Blood Count 10.4 4.3-11.0 10^3/uL Red Blood Count 3.59 L 4.35-5.85 10^6/uL Hemoglobin 10.4 L 11.5-16.0 G/DL Hematocrit 32 L 35-52 % Mean Corpuscular Volume 89 80-99 FL Mean Corpuscular Hemoglobin 29 25-34 PG Mean Corpuscular Hemoglobin Concent 33 32-36 G/DL Red Cell Distribution Width 13.9 10.0-14.5 % Platelet Count 519 H 130-400 10^3/uL Mean Platelet Volume 8.9 7.4-10.4 FL Neutrophils (%) (Auto) 80 H 42-75 % Lymphocytes (%) (Auto) 14 12-44 % Monocytes (%) (Auto) 6 0-12 % Eosinophils (%) (Auto) 1 0-10 % Basophils (%) (Auto) 0 0-10 % Neutrophils # (Auto) 8.2 H 1.8-7.8 X 10^3 Lymphocytes # (Auto) 1.5 1.0-4.0 X 10^3 Monocytes # (Auto) 0.6 0.0-1.0 X 10^3 Eosinophils # (Auto) 0.1 0.0-0.3 10^3/uL Basophils # (Auto) 0.0 0.0-0.1 10^3/uL C-Reactive Protein High Sensitivity 6.02 H 0.00-0.50 MG/DL Urine Color YELLOW Urine Clarity CLEAR Urine pH 5.5 5-9 Urine Specific [place] 1.025 H 1.016-1.022 Urine Protein NEGATIVE NEGATIVE Urine Glucose (UA) NEGATIVE NEGATIVE Urine Ketones NEGATIVE NEGATIVE Urine Nitrite NEGATIVE NEGATIVE Urine Bilirubin NEGATIVE NEGATIVE Urine Urobilinogen 0.2 < = 1.0 MG/DL Urine Leukocyte Esterase 1+ H NEGATIVE Urine RBC (Auto) TRACE-I NEGATIVE Urine RBC 5-10 H /HPF Urine WBC 10-25 H /HPF Urine Crystals NONE /LPF Urine Bacteria TRACE /HPF Urine Casts NONE /LPF Urine Mucus LARGE H /LPF Urine Culture Indicated NO My Orders Orders - GARRET SHERWOOD Cbc With Automated Diff (07/31/19 18:27) Hs C Reactive Protein (07/31/19 18:27) Ua Culture If Indicated (07/31/19 18:42) Vital Signs/I&O 07/31/19 18:21 Temp 37.0 Pulse 76 Resp 18 B/P (MAP) 105/87 (93) Pulse Ox 98 O2 Delivery Room Air Capillary Refill : Progress Note : Time: 18:32 Progress Note Suspect seroma versus much less likely abscess. We'll check a CBC and CRP as well as lay ultrasound across the wound. Aseptic vital signs at present with history of objective fever at home. Bedside ultrasound was able to reveal a simple fluid collection just deep to the right half of the surgical wound that does not appear to be loculated or complex. Measures approximately 2.5 x 5 cm at greatest dimension. And review of systems fails to reveal source for fever otherwise. Plan to check a urinalysis regardless. Departure Communication (PCP) Discussed the case with Dr. Agarwal, PCP and she agrees with change in antibiotics for something that has MRSA coverage. Bactrim would be tolerable for breast- feeding and would cover empirically for UTI as well as possible abscess formation. She was not impressed by erythema warmth or presence of abscess when she saw her Thursday, 2 days ago. She agreed that a seroma was more likely. She'll be happy to see the patient later this week if the patient would call on Thursday. Impression Primary Impression: Urinary tract infection Qualified Codes: N30.01 - Acute cystitis with hematuria Additional Impressions: Seroma after procedure Anemia Qualified Codes: D64.9 - Anemia, unspecified Disposition: HOME, SELF-CARE Condition: Stable Departure-Patient Inst. Decision time for Depature: 19:32 Referrals: MAGUI AGARWAL MD (PCP/Family) Primary Care Physician Patient Instructions: Urinary Tract Infection, Adult (DC) Add. Discharge Instructions: Drink plenty of fluids. Stop taking the Keflex tonight. Bactrim one tablet twice a day with food in at least 8 ounces of water. supervisor coke handling a bottle of probiotics and start taking one capsule twice a day for the next couple weeks. Continue taking your multivitamins as tolerated for the next several months per your primary doctor's recommendations. Warm compresses applied over the wound for pain or swelling. Tylenol 1000 mg every 8 hours as needed for pain. If you're still having issues by Thursday then please call Dr. Agarwal for follow- up appointment in the clinic. Sometimes these seroma/fluid collections need to be drained and Dr. Agarwal can help set that up for you if it is indicated. If you're having intractable pain or unable to tolerate eating and drinking then I would encourage you to return to the ER. Scripts Sulfamethoxazole/Trimethoprim (Bactrim Ds Tablet) 1 Each Tablet 1 EACH PO BID for 7 Days, #14 TAB 0 Refills Prov: GARRET SHERWOOD 07/31/19 GARRET SHERWOOD July 31, 2019 18:33
[2019-07-31 18:45] LABS: BASOPHILS % (AUTO) 0 % (0-10); EOSINOPHILS # (AUTO) 0.1 10^3/uL (0.0-0.3); EOSINOPHILS % (AUTO) 1 % (0-10); HEMATOCRIT 32 % (35-52); HEMOGLOBIN 10.4 G/DL (11.5-16.0); LYMPHOCYTES # (AUTO) 1.5 X 10^3 (1.0-4.0); LYMPHOCYTES % (AUTO) 14 % (12-44); MEAN CORPUSCULAR HEMOGLOBIN 29 PG (25-34); MEAN CORPUSCULAR HGB CONC 33 G/DL (32-36); MEAN CORPUSCULAR VOLUME 89 FL (80-99); MEAN PLATELET VOLUME 8.9 FL (7.4-10.4); MONOCYTES # (AUTO) 0.6 X 10^3 (0.0-1.0); MONOCYTES % (AUTO) 6 % (0-12); NEUTROPHILS # (AUTO) 8.2 X 10^3 (1.8-7.8); NEUTROPHILS % (AUTO) 80 % (42-75); PLATELET COUNT 519 10^3/uL (130-400); RED CELL DISTRIBUTION WIDTH 13.9 % (10.0-14.5); WHITE BLOOD COUNT 10.4 10^3/uL (4.3-11.0)
[2019-07-31 19:10] LABS: BILIRUBIN,URINE NEGATIVE (NEGATIVE); CLARITY,URINE CLEAR; COLOR,URINE YELLOW; GLUCOSE, URINE (UA) NEGATIVE (NEGATIVE); KETONES,URINE NEGATIVE (NEGATIVE); LEUKOCYTE ESTERASE ,URINE 1+ (NEGATIVE); NITRITE,URINE NEGATIVE (NEGATIVE); PH,URINE 5.5 (5-9); PROTEIN,URINE NEGATIVE (NEGATIVE)
[2019-07-31 19:19] LABS: BACTERIA,URINE TRACE /HPF
[2019-07-31] MEDS ORDERED: SULF1TAB35 PO (19:39)
[2019-07-31] MEDS ORDERED: TRIM/SULFAMETH 160/800 (SEPTRA DS) TAB PO ONE (19:45)
[2019-07-31 19:47] VITALS: BP 107/76
== END 2019-07-31 19:48 | disposition home or self-care (01) ==
LOC: EDUNIT# 18:19 → ER 18:20
DX: O86.20 Urinary tract infection following delivery, unspecified (principal); O99.89 Other specified diseases and conditions complicating pregnancy, childbirth and the puerperium; N99.842 Postprocedural seroma of a genitourinary system organ or structure following a genitourinary system procedure; O99.03 Anemia complicating the puerperium; D64.9 Anemia, unspecified; Z88.0 Allergy status to penicillin; Z85.850 Personal history of malignant neoplasm of thyroid
CPT/HCPCS: 36415; 81000; 85025; 86141; 99283

== ENCOUNTER → 2019-09-02 | Outpatient (CLI) | payer BC ==
[~2019-09-02] MED LIST changes: +SULF1TAB35 PO
== END ==
LOC: LAB FS 15:09
PROVIDERS: ATTEND Family Medicine
DX: E03.9 Hypothyroidism, unspecified (principal)
CPT/HCPCS: 36415; 84443

== ENCOUNTER → 2020-02-28 | Outpatient (CLI) | payer MEDICAID | LOC: LAB FS 12:46 | PROVIDERS: ATTEND Family Medicine | DX: E03.9 Hypothyroidism, unspecified (principal) | CPT/HCPCS: 36415; 84443 ==

== ENCOUNTER → 2020-12-21 | Outpatient (CLI) | payer OTHER ==
[~2020-12-21] MED LIST changes: -SULF1TAB35 PO; +SULF1TAB38 PO
== END ==
LOC: LAB FS 15:23
PROVIDERS: ATTEND Registered Nurse Emergency
DX: N92.5 Other specified irregular menstruation (principal)
CPT/HCPCS: 36415; 84702

== ENCOUNTER → 2020-12-24 | Outpatient (CLI) | payer OTHER | LOC: LAB FS 08:11 | PROVIDERS: ATTEND Registered Nurse Emergency | DX: N92.5 Other specified irregular menstruation (principal) | CPT/HCPCS: 36415; 84702 ==

== ENCOUNTER → 2021-01-02 | Outpatient (CLI) | payer OTHER | LOC: LAB FS 08:17 | PROVIDERS: ATTEND Family Medicine | DX: Z34.91 Encounter for supervision of normal pregnancy, unspecified, first trimester (principal); Z3A.00 Weeks of gestation of pregnancy not specified | CPT/HCPCS: 36415; 84443 ==

== ENCOUNTER → 2021-01-24 | Outpatient (CLI) | payer BC ==
[2021-01-24 11:21] LABS: HEMATOCRIT 36 % (35-52); MEAN CORPUSCULAR HEMOGLOBIN 31 pg (25-34); MEAN CORPUSCULAR HGB CONC 33 g/dL (32-36); MEAN CORPUSCULAR VOLUME 91 fL (80-99); MEAN PLATELET VOLUME 10.7 fL (9.0-12.2); PLATELET COUNT 224 10^3/uL (130-400); WHITE BLOOD COUNT 4.7 10^3/uL (4.3-11.0)
== END ==
LOC: LAB FS 10:15
PROVIDERS: ATTEND Family Medicine
DX: Z34.91 Encounter for supervision of normal pregnancy, unspecified, first trimester (principal); Z3A.00 Weeks of gestation of pregnancy not specified
CPT/HCPCS: 36415; 85027; 86703; 86762; 86780; 86850; 86900; 86901; 87077; 87088; 87340

== ENCOUNTER → 2021-02-14 | Outpatient (CLI) | payer BC | LOC: LABNPT 14:49 | PROVIDERS: ATTEND Family Medicine | DX: Z33.1 Pregnant state, incidental (principal) | CPT/HCPCS: 87210 ==

== ENCOUNTER 2021-02-15 09:32 | Emergency (ER) | payer BC ==
[~2021-02-15] VITALS: Ht 160 cm; Wt 55.3 kg
[2021-02-15 10:58] LABS: BILIRUBIN,URINE NEGATIVE (NEGATIVE); CLARITY,URINE CLEAR; COLOR,URINE YELLOW; GLUCOSE, URINE (UA) NEGATIVE (NEGATIVE); KETONES,URINE NEGATIVE (NEGATIVE); LEUKOCYTE ESTERASE ,URINE 1+ (NEGATIVE); NITRITE,URINE NEGATIVE (NEGATIVE); PH,URINE 7.5 (5-9); PROTEIN,URINE NEGATIVE (NEGATIVE)
--- NOTE | 2021-02-15 10:59 | ED GU-Female ---
General Chief Complaint: OB < 20 WEEKS Stated Complaint: 12-15 WKS PREG-SPOTTING Nursing Triage Note: PT AMB TO RM 10 WITH COMPLAINT OF BROWN/REDISH VAGINAL DISCHARGE. STATES WENT TO DR ON THURSDAY, HAD NORMAL ULTRASOUND AND PELVIC. STATES URINE RESULTS HAD A MIX UP AND HAVE NOT BEEN REPORTED. STATES SHE IS HAVING BACK PAIN AND PELVIC PAIN. APPROX 12 WEEKS Source: patient Exam Limitations: no limitations (JOSE TEJADA STUDENT) History of Present Illness Date Seen by Provider: Feb 15, 2021 Time Seen by Provider: 10:20 Initial Comments This is an otherwise healthy 30 YO female, A0 who presents to the ED with vaginal spotting with . Pt states she is 12-15 weeks and 3 days ago noticed some brownish red spotting. She saw her PCP Dr. Agarwal in [place] for her symptoms the next day. Ultrasound and pelvic exam were performed at that time. Pt reports ultrasound was normal and pelvic exam showed a small amount of blood. She states she just got a call back from office saying that she likely has bacterial vaginosis based on the results of her wet prep. Denies painful urination, but states she has an unusual sensation in her bladder and is concerned about possible UTI. Also notes some lower back pain that is increased from normal, but denies any abdominal or pelvic pain/cramping. Denies any symptoms like this with her previous , which she delivered by about 1 month early, but was otherwise uncomplicated. Associated Symptoms: No fever/chills (JOSE TEJADA STUDENT) Allergies and Home Medications Allergies Coded Allergies: amoxicillin (Verified Allergy, Unknown, 07/20/19) Patient Home Medication List Home Medication List Reviewed: Yes (TORITO MCKEON MD) Docusate Sodium (Colace) 100 Mg Capsule, 100 MG PO BID Prescribed by: BERNARDA DODD on 07/20/19 1107 Ibuprofen (Ibuprofen) 800 Mg Tablet, 800 MG PO Q6H PRN for PAIN Prescribed by: BERNARDA DODD on 07/20/19 1107 Oxycodone HCl/Acetaminophen (Percocet 10-325 mg Tablet) 1 Each Tablet, 1 TAB PO Q4H PRN for PAIN-MODERATE Prescribed by: BERNARDA DODD on 07/20/19 1107 Sulfamethoxazole/Trimethoprim (Bactrim Ds Tablet) 1 Each Tablet, 1 EACH PO BID Prescribed by: GARRET SHERWOOD on 07/31/191938 Review of Systems Review of Systems Constitutional: No chills, No fever EENTM: No blurred vision, No double vision Respiratory: No cough, No short of breath Cardiovascular: No chest pain, No palpitations Gastrointestinal: No diarrhea, No nausea, No vomiting Genitourinary: see HPI : Yes Expected Date of Delivery: Aug 25, 2021 Musculoskeletal: back pain; No muscle pain Skin: no symptoms reported Psychiatric/Neurological: Denies Headache, Denies Numbness Endocrine: No Symptoms Reported Hematologic/Lymphatic: No Symptoms Reported (JOSE TEJADA STUDENT) All Other Systemes Reviewed Negative Unless Noted: Yes (Negative excepted noted.) (JOSE TEJADA) Past Pfobbpp-Ukgtqo-Ziucob Hx Patient Social History Tobacco Use?: No Use of E-Cig and/or Vaping dev: No Substance use?: No Alcohol Use?: No Pt feels they are or have been: No (JOSE TEJADA) Immunizations Up To Date PED Vaccines UTD: Yes (JOSE TEJADA) Seasonal Allergies Seasonal Allergies: No (JOSE TEJADA) Past Medical History Surgeries: Yes Thyroidectomy Respiratory: No Currently Using CPAP: No Currently Using BIPAP: No Neurological: No Female Reproductive Disorders: Denies Sexually Transmitted Disease: No HIV/AIDS: No Genitourinary: No Gastrointestinal: No Musculoskeletal: No Endocrine: Yes HEENT: No Cancer: Yes (Thyroid cancer) Thyroid What Type of Treatment Did You: Radiation, Surgical Intervention Psychosocial: No Integumentary: No Blood Disorders: No Adverse Reaction/Blood Tranf: No (JOSE TEJADA STUDENT) Family Medical History Asthma G8 BROTHER (3y/o) Physical Exam Vital Signs Vital Signs - First Documented 02/15/21 09:37 Pulse 97 Resp 16 B/P (MAP) 126/97 (107) Pulse Ox 100 O2 Delivery Room Air (TORITO MCKEON MD) Vital Signs Capillary Refill : Less Than 3 Seconds (JOSE TEJADA STUDENT) Height, Weight, BMI Height: '" Weight: lbs. oz. kg; 21.00 BMI Method: General Appearance: WD/WN, no apparent distress HEENT: PERRL/EOMI, normal ENT inspection Neck: supple, normal inspection Cardiovascular: regular rate, rhythm, no edema, no murmur Respiratory: lungs clear, normal breath sounds, no respiratory distress, no accessory muscle use Gastrointestinal: non tender, soft Extremities: normal range of motion, normal inspection, no pedal edema Neurologic/Psychiatric: no motor/sensory deficits, alert, normal mood/affect, oriented x 3 Skin: normal color, warm/dry (Higher[employer] STUDENT) Progress/Results/Core Measures Suspected Sepsis SIRS Temperature: Pulse: 97 Respiratory Rate: 16 Blood Pressure 126 /97 Mean: 107 (HigherNext STUDENT) Results/Orders Lab Results Laboratory Tests Test 02/15/21 09:47 02/15/21 11:05 Range/Units Urine Color YELLOW Urine Clarity CLEAR Urine pH 7.5 5-9 Urine Specific [place] 1.015 L 1.016-1.022 Urine Protein NEGATIVE NEGATIVE Urine Glucose (UA) NEGATIVE NEGATIVE Urine Ketones NEGATIVE NEGATIVE Urine Nitrite NEGATIVE NEGATIVE Urine Bilirubin NEGATIVE NEGATIVE Urine Urobilinogen 0.2 < = 1.0 MG/DL Urine Leukocyte Esterase 1+ H NEGATIVE Urine RBC (Auto) 1+ H NEGATIVE Urine RBC RARE /HPF Urine WBC 0-2 /HPF Urine Squamous Epithelial Cells 2-5 /HPF Urine Crystals NONE /LPF Urine Bacteria NEGATIVE /HPF Urine Casts NONE /LPF Urine Mucus NEGATIVE /LPF Urine Culture Indicated NO White Blood Count 6.8 4.3-11.0 10^3/uL Red Blood Count 3.60 L 3.80-5.11 10^6/uL Hemoglobin 11.2 L 11.5-16.0 g/dL Hematocrit 33 L 35-52 % Mean Corpuscular Volume 91 80-99 fL Mean Corpuscular Hemoglobin 31 25-34 pg Mean Corpuscular Hemoglobin Concent 34 32-36 g/dL Red Cell Distribution Width 12.8 10.0-14.5 % Platelet Count 227 130-400 10^3/uL Mean Platelet Volume 9.7 9.0-12.2 fL Immature Granulocyte % (Auto) 0 % Neutrophils (%) (Auto) 74 42-75 % Lymphocytes (%) (Auto) 17 12-44 % Monocytes (%) (Auto) 8 0-12 % Eosinophils (%) (Auto) 0 0-10 % Basophils (%) (Auto) 1 0-10 % Neutrophils # (Auto) 5.0 1.8-7.8 10^3/uL Lymphocytes # (Auto) 1.1 1.0-4.0 10^3/uL Monocytes # (Auto) 0.6 0.0-1.0 10^3/uL Eosinophils # (Auto) 0.0 0.0-0.3 10^3/uL Basophils # (Auto) 0.1 0.0-0.1 10^3/uL Immature Granulocyte # (Auto) 0.0 0.0-0.1 10^3/uL Human Chorionic Gonadotropin, Quant 11298 H <5 MIU/ML (TORITO MCKEON MD) My Orders Orders - TORITO MCKEON MD Ua Culture If Indicated (02/15/21 10:39) Hcg,Quantitative (02/15/21 10:39) Cbc With Automated Diff (02/15/21 10:39) Heart Tones (02/15/21 10:39) (TORITO MCKEON MD) Vital Signs/I&O (TORITO MCKEON MD) Vital Signs/I&O Capillary Refill : Less Than 3 Seconds (JOSE TEJADA MED STUDENT) Blood Pressure Mean: 107 Progress Note : Time: 12:03 Progress Note Patient seen and examined, 30-year-old G2, P1 with some lower abdominal discomfort and a little bit of mucousy vaginal bleeding. Just saw her doctor, Dr. Agarwal 3 days ago in clinic. Had a pelvic exam performed at that time. Office notified her today that she does have bacterial vaginosis. Patient evaluation today includes a type and Rh, CBC, quantitative hCG and urinalysis. Urine does not show any evidence of bacteriuria. Her quant is 15,000. Her CBC is stable. I was able to Doppler heart tones at 156. Patient has follow- up scheduled with her OB provider the first or second week of March. I did instruct her to follow-up regarding treatment possibility for the bacterial vaginosis. Patient is happy with heart tones and hCG results. She is encouraged to take some Tylenol as needed for cramping and to return if she has any bleeding that resembles a menstrual cycle. She is also encouraged to hydrate. All questions are sought and answered. Patient is stable for discharge. (TORITO MCKEON MD) Departure Impression Primary Impression: Threatened miscarriage in early Disposition: 01 HOME, SELF-CARE Condition: Stable Departure-Patient Inst. Decision time for Depature: 12:05 (TORITO MCKEON MD) Referrals: MAGUI AGARWAL MD (PCP/Family) Primary Care Physician Patient Instructions: Threatened Miscarriage (DC) Add. Discharge Instructions: Drink lots of fluids to stay well-hydrated. You can take mvbx-nmb-wjwootc extra strength Tylenol 2 tablets every 6 hours as needed for cramping. Please follow-up with Dr. Agarwal's office regarding possible treatment for bacterial vaginosis. Return to the emergency room for any worsening pain especially associated with vaginal bleeding that resembles a menstrual cycle. Follow-up as scheduled with Dr. Agarwal. Verification and Attestation of Medical Student E/M Service A medical student performed and documented this service in my presence. I reviewed and verified all information documented by the medical student and made modifications to such information, when appropriate. I personally performed the physical exam and medical decision making. Torito Mckeon, Feb 15, 2021,12:05 (TORITO MCKEON MD) JOSE TEJADA MED STUDENT Feb 15, 2021 10:59 TORITO MCKEON MD Feb 15, 2021 12:06
[2021-02-15 11:13] LABS: BASOPHILS # (AUTO) 0.1 10^3/uL (0.0-0.1); BASOPHILS % (AUTO) 1 % (0-10); EOSINOPHILS % (AUTO) 0 % (0-10); HEMATOCRIT 33 % (35-52); HEMOGLOBIN 11.2 g/dL (11.5-16.0); LYMPHOCYTES # (AUTO) 1.1 10^3/uL (1.0-4.0); LYMPHOCYTES % (AUTO) 17 % (12-44); MEAN CORPUSCULAR HEMOGLOBIN 31 pg (25-34); MEAN CORPUSCULAR HGB CONC 34 g/dL (32-36); MEAN CORPUSCULAR VOLUME 91 fL (80-99); MEAN PLATELET VOLUME 9.7 fL (9.0-12.2); MONOCYTES # (AUTO) 0.6 10^3/uL (0.0-1.0); MONOCYTES % (AUTO) 8 % (0-12); NEUTROPHILS % (AUTO) 74 % (42-75); PLATELET COUNT 227 10^3/uL (130-400); WHITE BLOOD COUNT 6.8 10^3/uL (4.3-11.0)
[2021-02-15 11:15] LABS: BACTERIA,URINE NEGATIVE /HPF; RBC,URINE RARE /HPF; WBC,URINE 0-2 /HPF
[2021-02-15 12:22] VITALS: BP 118/86
== END 2021-02-15 12:22 | disposition home or self-care (01) ==
LOC: EDUNIT# 09:32 → ER 09:33
DX: O20.0 Threatened abortion (principal); Z3A.00 Weeks of gestation of pregnancy not specified
CPT/HCPCS: 36415; 81000; 84702; 85025

== ENCOUNTER → 2021-06-07 | Outpatient (CLI) | payer BC ==
[2021-06-07 10:12] LABS: HEMATOCRIT 33 % (35-52); HEMOGLOBIN 10.9 g/dL (11.5-16.0); MEAN CORPUSCULAR HEMOGLOBIN 30 pg (25-34); MEAN CORPUSCULAR HGB CONC 33 g/dL (32-36); MEAN CORPUSCULAR VOLUME 91 fL (80-99); MEAN PLATELET VOLUME 10.2 fL (9.0-12.2); PLATELET COUNT 183 10^3/uL (130-400); WHITE BLOOD COUNT 6.5 10^3/uL (4.3-11.0)
== END ==
LOC: LAB FS 09:38
PROVIDERS: ATTEND Family Medicine
DX: O99.283 Endocrine, nutritional and metabolic diseases complicating pregnancy, third trimester (principal); Z3A.28 28 weeks gestation of pregnancy
CPT/HCPCS: 36415; 82950; 84443; 85027; 86780

== ENCOUNTER 2021-09-08 18:22 | Emergency (ER) | payer BC, OTHER ==
[~2021-09-08] VITALS: Ht 160 cm; Wt 61.2 kg
[2021-09-08 18:27] VITALS: BP 134/84
--- NOTE | 2021-09-08 18:36 | ED Lower Extremity ---
General Stated Complaint: RT FOOT INJ History of Present Illness Date Seen by Provider: Sep 08, 2021 Time Seen by Provider: 18:36 Initial Comments Patient reports that around 11 AM this morning one of her kids threw a plastic toy house that hit her in the right foot. That a little bit ago she went to [facility] was walk around and has developed significant mount of pain on a lateral aspect. Patient reports that now it is painful to bear weight. She denies any other injury. Patient is approximately 2 weeks but is bottlefeeding and not breast-feeding. Allergies and Home Medications Allergies Coded Allergies: amoxicillin (Verified Allergy, Unknown, 07/20/19) Patient Home Medication List Home Medication List Reviewed: Yes Docusate Sodium (Colace) 100 Mg Capsule, 100 MG PO BID Prescribed by: BERNARDA DODD on 07/20/19 1107 Ibuprofen (Ibuprofen) 800 Mg Tablet, 800 MG PO Q6H PRN for PAIN Prescribed by: BERNARDA DODD on 07/20/19 1107 Oxycodone HCl/Acetaminophen (Percocet 10-325 mg Tablet) 1 Each Tablet, 1 TAB PO Q4H PRN for PAIN-MODERATE Prescribed by: BERNARDA DODD on 07/20/19 1107 Sulfamethoxazole/Trimethoprim (Bactrim Ds Tablet) 1 Each Tablet, 1 EACH PO BID Prescribed by: GARRET SHERWOOD on 07/31/191938 Review of Systems Constitutional: No chills, No fever EENTM: no symptoms reported Respiratory: no symptoms reported Cardiovascular: no symptoms reported Gastrointestinal: no symptoms reported Genitourinary: no symptoms reported Musculoskeletal: see HPI Skin: see HPI Psychiatric/Neurological: No Symptoms Reported Past Siybire-Tfvieb-Vvxbcv Hx Immunizations Up To Date PED Vaccines UTD: Yes Seasonal Allergies Seasonal Allergies: No Past Medical History Surgeries: Yes Thyroidectomy Respiratory: No Currently Using CPAP: No Currently Using BIPAP: No Neurological: No Female Reproductive Disorders: Denies Sexually Transmitted Disease: No HIV/AIDS: No Genitourinary: No Gastrointestinal: No Musculoskeletal: No Endocrine: Yes HEENT: No Cancer: Yes (Thyroid cancer) Thyroid What Type of Treatment Did You: Radiation, Surgical Intervention Psychosocial: No Integumentary: No Blood Disorders: No Adverse Reaction/Blood Tranf: No Family Medical History Asthma G8 BROTHER (3y/o) Physical Exam Vital Signs Vital Signs - First Documented 09/08/21 18:27 Temp 37.0 Pulse 95 Resp 18 B/P (MAP) 134/84 (101) Pulse Ox 99 O2 Delivery Room Air Capillary Refill : Height, Weight, BMI Height: '" Weight: lbs. oz. kg; 21.00 BMI Method: General Appearance: WD/WN, no apparent distress Neck: full range of motion, supple Cardiovascular: normal peripheral pulses, regular rate, rhythm Respiratory: lungs clear, normal breath sounds Gastrointestinal: non tender, soft Hips: bilateral hip non-tender Legs: bilateral leg non-tender Knees: bilateral knee non-tender Ankles: bilateral ankle non-tender Feet: left foot non-tender, left foot normal inspection; right foot soft tissue tenderness (Lateral aspect) Progress/Results/Core Measures Results/Orders My Orders Orders - CASIE WRIGHT DO Foot 3 View Right (09/08/21 18:37) Herber Bandage (09/08/21 19:05) Vital Signs/I&O 09/08/21 18:27 Temp 37.0 Pulse 95 Resp 18 B/P (MAP) 134/84 (101) Pulse Ox 99 O2 Delivery Room Air Progress Progress Note : Progress Note Patient with no acute fractures. Patient with soft tissue contusion. Will place an Herber wrap. Patient to use ibuprofen Tylenol and topical lidocaine. Patient stable and discharged home Diagnostic Imaging Diagonstic Imaging: Xray Plain Films/CT/US/NM/MRI: other Comments Date of Exam:09/08/21 FOOT 3 VIEW RIGHT INDICATION: Trauma, pain. COMPARISON: None available. TECHNIQUE: Three radiographs of the right foot dated September 08, 2021. FINDINGS: No acute fracture or dislocation. No destructive osseous process. Mild scattered degenerative changes, including within the 1st MTP joint. The Lisfranc joint is well aligned. No evidence of tarsal coalition. Soft tissue swelling is noted throughout the midfoot. No calcaneal enthesophytes. IMPRESSION: 1. No acute fracture with mild degenerative changes. 2. Soft tissue swelling about the midfoot. Reviewed: Reviewed by Me, Reviewed/Discussed Departure Impression Primary Impression: Contusion of right foot, initial encounter Disposition: 01 HOME, SELF-CARE Condition: Stable Departure-Patient Inst. Referrals: MAGUI AGARWAL MD (PCP) Primary Care Physician Patient Instructions: Minor Contusion ED Add. Discharge Instructions: 4% topical lidocaine with menthol to affected area Tylenol or ibuprofen as needed for disc Herber wrap as needed for discomfort Ice for 20 minutes at a time 3-4 times daily for the next 24 to 36 hours Follow-up with your primary care provider if symptoms not improved in 7-10days CASIE WRIGHT DO Sep 08, 2021 18:36
--- NOTE | 2021-09-08 19:00 | Diagnostic Imaging Report ---
INDICATION: Trauma, pain. COMPARISON: None available. TECHNIQUE: Three radiographs of the right foot dated September 08, 2021. FINDINGS: No acute fracture or dislocation. No destructive osseous process. Mild scattered degenerative changes, including within the 1st MTP joint. The Lisfranc joint is well aligned. No evidence of tarsal coalition. Soft tissue swelling is noted throughout the midfoot. No calcaneal enthesophytes. IMPRESSION: 1. No acute fracture with mild degenerative changes. 2. Soft tissue swelling about the midfoot. Dictated by: Dictated on workstation # [id number]
== END 2021-09-08 19:10 | disposition home or self-care (01) ==
LOC: EDUNIT# 18:22 → ER FS 18:23
DX: O9A.23 Injury, poisoning and certain other consequences of external causes complicating the puerperium (principal); S90.31XA Contusion of right foot, initial encounter; Z28.310 Unvaccinated for COVID-19; W20.8XXA Other cause of strike by thrown, projected or falling object, initial encounter
CPT/HCPCS: 73630

== ENCOUNTER → 2022-01-13 | Outpatient (CLI) | payer OTHER | LOC: LAB FS 11:41 | PROVIDERS: ATTEND Family Medicine | DX: F32.9 Major depressive disorder, single episode, unspecified (principal); E03.9 Hypothyroidism, unspecified | CPT/HCPCS: 36415; 84443 ==